=== PATIENT | male | born 1990 | race Two or more races ===

== ENCOUNTER 2017-06-14 10:37 | Emergency (ER) | payer OTHER ==
[~2017-06-14] VITALS: Ht 162.6 cm; Wt 70.0 kg
[2017-06-14 11:56] VITALS: BP 127/67
== END 2017-06-14 11:56 | disposition home or self-care (01) ==
LOC: ER 10:39
DX: S09.8XXA Other specified injuries of head, initial encounter (principal); W22.8XXA Striking against or struck by other objects, initial encounter; Y93.89 Activity, other specified; Y92.89 Other specified places as the place of occurrence of the external cause; Y99.8 Other external cause status
CPT/HCPCS: 70450; 99284